=== PATIENT | male | born 1945 | race African-American/Black ===

== ENCOUNTER 2017-01-16 11:02 | Inpatient (IN) | payer MEDICARE, OTHER ==
[~2017-01-16] VITALS: Ht 190.5 cm; Wt 70.3 kg
[~2017-01-16 11:02] MED LIST: ASPIRIN E.C. 8181 MG PO; MULTI VITAMINS1 TAB PO; PROCARDIA XL90 MG PO; TOPROL XL 50MG50 MG PO; TYLENOL 500MG500 MG PO; VITAMIN D 1001000 IU PO; XARELTO15 MG PO
[2017-01-16 18:32] VITALS: BP 160/90; PULSE 88; TEMP 97.8
[2017-01-16] MEDS ORDERED: CORDARONE200 MG/TAB PO (22:46)
[2017-01-16] MEDS ORDERED: LIPITOR 40MG TA40 MG PO (22:47)
[2017-01-16] MEDS ORDERED: CARDIZEM 60MG T60 MG PO (22:50)
[2017-01-16] MEDS ORDERED: DEPAKOTE500 MG PO (22:52)
[2017-01-16] MEDS ORDERED: PEPCID 20MG TAB20 MG PO (22:52)
[2017-01-16] MEDS ORDERED: HEPARIN SOD5000 U/ML SQ (22:55)
[2017-01-16] MEDS ORDERED: XOPENEX1.25 MG/0. IH (22:56)
[2017-01-16] MEDS ORDERED: ROXICODONE 55 MG/TAB PEG (22:57)
[2017-01-16] MEDS ORDERED: COUMADIN 5MG5 MG/TAB PO (22:58)
[2017-01-16] MEDS ORDERED: TYLENOL 500MG500 MG PO (22:59)
[2017-01-17 04:08] VITALS: BP 143/87; PULSE 92; TEMP 98.5
[2017-01-17 10:08] LABS: INR 1.6 (0.8-3.0); PROTHROMBIN TIME 17.4 SECONDS (9.7-12.8)
[2017-01-17 17:12] VITALS: BP 157/94; PULSE 72; TEMP 98.1
[2017-01-18 04:06] VITALS: BP 155/88; PULSE 84; TEMP 98.9
[2017-01-18 08:13] LABS: INR 1.9 (0.8-3.0); PROTHROMBIN TIME 21.2 SECONDS (9.7-12.8)
[2017-01-18 09:10] LABS: PHOSPHOROUS 4.4 mg/dL (2.5-4.5)
[2017-01-18 15:52] VITALS: BP 156/84; PULSE 73; TEMP 98.7
[2017-01-19 05:00] VITALS: BP 149/85; PULSE 87; TEMP 97.8
[2017-01-19 06:45] LABS: ADD PATHOLOGY DIFF REVIEW NO
[2017-01-19 06:48] LABS: MEAN CELL VOLUME 94 fl (80.0-100.0); MEAN CORPUSCULAR HGB CONC 32 g/dl (33.0-37.0); MEAN PLATELET VOLUME 11.8 fl (7.4-10.4); PLATELET COUNT 413 K/mm3 (130-400); RED BLOOD COUNT 2.64 M/mm3 (4.20-5.60); REDCELL DISTRIBUTION WIDTH-CV 14.9 % (11.5-14.5)
[2017-01-19 06:53] LABS: HEMATOCRIT 24.9 % (42.0-52.0); HEMOGLOBIN 7.9 g/dl (13.5-18.0); MEAN CORPUSCULAR HEMOGLOBIN 30 pg (27.0-31.0)
[2017-01-19 07:04] LABS: ADJUSTED CALCIUM 9.2 mg/dL (8.4-10.2); ALBUMIN 2.9 gm/dL (3.5-5.0); BILIRUBIN,TOTAL 0.5 mg/dL (0.0-1.0); CALCIUM 8.3 mg/dL (8.4-10.2); MAGNESIUM 2.1 mg/dL (1.6-2.3); POTASSIUM 4.9 mmol/L (3.4-5.0); TOTAL PROTEIN 6.7 gm/dL (6.4-8.2)
[2017-01-19 07:09] LABS: CREATININE, serum 4.4 mg/dL (0.66-1.25)
[2017-01-19 07:26] LABS: INR 2.1 (0.8-3.0); PROTHROMBIN TIME 23.3 SECONDS (9.7-12.8)
[2017-01-19 08:12] LABS: BAND 2 % (0-10); EOSINOPHIL 1 % (0-4); NEUTROPHILS 78 % (42.0-75.2); TOTAL CELLS COUNTED 100
[2017-01-19 08:13] LABS: PLATELET ESTIMATE INCREASED (NORMAL)
[2017-01-19 11:49] VITALS: PULSE 75
[2017-01-19 15:59] VITALS: BP 148/91; PULSE 79; TEMP 98.1
[2017-01-20 04:47] VITALS: BP 159/80; PULSE 92; TEMP 98.2
[2017-01-20 08:16] LABS: PROTHROMBIN TIME 23.2 SECONDS (9.7-12.8)
[2017-01-20 08:43] LABS: CALCIUM 8.5 mg/dL (8.4-10.2)
[2017-01-20 09:05] LABS: CREATININE, serum 4.33 mg/dL (0.66-1.25)
[2017-01-20 13:30] VITALS: PULSE 81
[2017-01-20 16:50] VITALS: BP 142/84; PULSE 80; TEMP 99.3
[2017-01-21 05:26] VITALS: BP 144/88; PULSE 83; TEMP 99.7
[2017-01-21 07:59] LABS: PROTHROMBIN TIME 22.6 SECONDS (9.7-12.8)
[2017-01-21 18:30] VITALS: BP 162/99; PULSE 80; TEMP 98
[2017-01-22 04:41] VITALS: BP 154/85; PULSE 86; TEMP 99.8
[2017-01-22 06:35] LABS: INR 2.1 (0.8-3.0); PROTHROMBIN TIME 23.9 SECONDS (9.7-12.8)
[2017-01-22 17:59] VITALS: BP 177/100; PULSE 80; TEMP 98.6
[2017-01-22 21:50] VITALS: BP 169/93
[2017-01-23 05:18] VITALS: BP 171/93; PULSE 89; TEMP 99.3
[2017-01-23 07:17] LABS: INR 2.4 (0.8-3.0); PROTHROMBIN TIME 27.5 SECONDS (9.7-12.8)
[2017-01-23 19:34] VITALS: BP 145/85; PULSE 77; TEMP 98
[2017-01-24 05:12] VITALS: BP 152/92; PULSE 80; TEMP 99
[2017-01-24 07:50] LABS: INR 2.7 (0.8-3.0); PROTHROMBIN TIME 31.1 SECONDS (9.7-12.8)
[2017-01-24 07:59] LABS: CALCIUM 8.3 mg/dL (8.4-10.2); POTASSIUM 4.8 mmol/L (3.4-5.0)
[2017-01-24 08:22] LABS: CREATININE, serum 4.48 mg/dL (0.66-1.25)
[2017-01-24 09:22] VITALS: BP 145/87; PULSE 77; TEMP 99.1
[2017-01-24 17:18] VITALS: BP 153/82; PULSE 65; TEMP 97.3
[2017-01-25] VITALS (9 sets, daily range): BP systolic 147–167; BP diastolic 86–112; PULSE 72–79; TEMP 98.3
[2017-01-26 05:38] VITALS: BP 175/94; PULSE 70; TEMP 97.8
[2017-01-26 06:15] LABS: ALBUMIN 3.2 gm/dL (3.5-5.0); BILIRUBIN,TOTAL 0.5 mg/dL (0.0-1.0); CALCIUM 8.4 mg/dL (8.4-10.2); PHOSPHOROUS 4.9 mg/dL (2.5-4.5); POTASSIUM 4.3 mmol/L (3.4-5.0); TOTAL PROTEIN 7.3 gm/dL (6.4-8.2)
[2017-01-26 06:23] LABS: CREATININE, serum 4.29 mg/dL (0.66-1.25)
[2017-01-26 11:57] VITALS: PULSE 70
[2017-01-26 13:51] LABS: INR 2.7 (0.8-3.0); PROTHROMBIN TIME 30.9 SECONDS (9.7-12.8)
[2017-01-26 18:40] VITALS: BP 164/94; PULSE 69; TEMP 97.4
[2017-01-27 06:22] VITALS: BP 166/88; PULSE 76; TEMP 99.2
[2017-01-27 16:00] VITALS: BP 155/89; PULSE 74; TEMP 98.6
[2017-01-28 05:11] VITALS: BP 139/86; PULSE 71; TEMP 98.2
[2017-01-28 10:41] LABS: INR 3.1 (0.8-3.0); PROTHROMBIN TIME 35.8 SECONDS (9.7-12.8)
[2017-01-28 16:29] VITALS: BP 145/83; PULSE 78; TEMP 98.8
[2017-01-29 05:13] VITALS: BP 171/89; PULSE 92; TEMP 99.4
[2017-01-29 16:39] VITALS: BP 150/81; PULSE 69; TEMP 97.9
[2017-01-30 02:30] VITALS: BP 166/92; PULSE 72; TEMP 99
[2017-01-30 06:51] LABS: INR 3.9 (0.8-3.0)
[2017-01-30 06:58] LABS: PROTHROMBIN TIME 45.3 SECONDS (9.7-12.8)
[2017-01-30 16:50] VITALS: BP 135/87; PULSE 59; TEMP 97.8
[2017-01-31 06:44] VITALS: BP 142/95; PULSE 65; TEMP 99.1
[2017-01-31 07:26] LABS: INR 3.9 (0.8-3.0)
[2017-01-31 07:33] LABS: PROTHROMBIN TIME 45.5 SECONDS (9.7-12.8)
[2017-01-31 15:22] VITALS: BP 103/63; PULSE 56; TEMP 98.8
[2017-02-01 06:30] VITALS: BP 142/90; PULSE 65; TEMP 98.8
[2017-02-01 07:58] LABS: INR 2.7 (0.8-3.0); PROTHROMBIN TIME 30.7 SECONDS (9.7-12.8)
[2017-02-01 18:13] VITALS: BP 118/81; PULSE 60; TEMP 98.3
[2017-02-02 06:30] VITALS: BP 130/83; PULSE 59; TEMP 99.4
[2017-02-02 07:01] LABS: MEAN CELL VOLUME 90 fl (80.0-100.0); MEAN CORPUSCULAR HGB CONC 33 g/dl (33.0-37.0); MEAN PLATELET VOLUME 12.7 fl (7.4-10.4); PLATELET COUNT 252 K/mm3 (130-400); RED BLOOD COUNT 2.62 M/mm3 (4.20-5.60); REDCELL DISTRIBUTION WIDTH-CV 14.9 % (11.5-14.5); WHITE BLOOD COUNT 13.5 K/mm3 (4.8-10.8)
[2017-02-02 07:02] LABS: ADD PATHOLOGY DIFF REVIEW NO; HEMATOCRIT 23.5 % (42.0-52.0); HEMOGLOBIN 7.7 g/dl (13.5-18.0); MEAN CORPUSCULAR HEMOGLOBIN 29 pg (27.0-31.0)
[2017-02-02 07:03] LABS: INR 1.9 (0.8-3.0); PROTHROMBIN TIME 21.5 SECONDS (9.7-12.8)
[2017-02-02 07:29] LABS: ADJUSTED CALCIUM 9.7 mg/dL (8.4-10.2); ALBUMIN 2.9 gm/dL (3.5-5.0); BILIRUBIN,TOTAL 0.4 mg/dL (0.0-1.0); CALCIUM 8.8 mg/dL (8.4-10.2); TOTAL PROTEIN 7.1 gm/dL (6.4-8.2)
[2017-02-02 08:09] LABS: EOSINOPHIL 1 % (0-4); NEUTROPHILS 65 % (42.0-75.2); TOTAL CELLS COUNTED 100; TOXIC GRANULATION PRESENT
[2017-02-02 08:10] LABS: PLATELET ESTIMATE NORMAL (NORMAL)
[2017-02-02 08:16] LABS: MAGNESIUM 2.7 mg/dL (1.6-2.3); PHOSPHOROUS 2.9 mg/dL (2.5-4.5)
[2017-02-02 08:18] LABS: CREATININE, serum 5.12 mg/dL (0.66-1.25)
[2017-02-02 16:06] VITALS: BP 112/81; PULSE 56; TEMP 98.5
[2017-02-03 05:27] VITALS: BP 120/77; PULSE 59; TEMP 98.5
[2017-02-03 06:47] LABS: INR 1.8 (0.8-3.0); PROTHROMBIN TIME 19.8 SECONDS (9.7-12.8)
[2017-02-03 06:52] LABS: CALCIUM 8.7 mg/dL (8.4-10.2); POTASSIUM 5.1 mmol/L (3.4-5.0)
[2017-02-03 06:55] LABS: CREATININE, serum 5.41 mg/dL (0.66-1.25)
[2017-02-03 16:27] VITALS: BP 125/69; PULSE 60; TEMP 97.1
[2017-02-04 04:09] VITALS: BP 152/49; PULSE 66; TEMP 98.2
[2017-02-04 06:19] LABS: MEAN CELL VOLUME 90 fl (80.0-100.0); MEAN CORPUSCULAR HGB CONC 32 g/dl (33.0-37.0); MEAN PLATELET VOLUME 12.6 fl (7.4-10.4); PLATELET COUNT 248 K/mm3 (130-400); RED BLOOD COUNT 2.52 M/mm3 (4.20-5.60); REDCELL DISTRIBUTION WIDTH-CV 15.2 % (11.5-14.5)
[2017-02-04 06:21] LABS: PROTHROMBIN TIME 22.8 SECONDS (9.7-12.8)
[2017-02-04 06:24] LABS: HEMATOCRIT 22.7 % (42.0-52.0); HEMOGLOBIN 7.3 g/dl (13.5-18.0); MEAN CORPUSCULAR HEMOGLOBIN 29 pg (27.0-31.0)
[2017-02-04 06:25] LABS: ADD PATHOLOGY DIFF REVIEW NO
[2017-02-04 06:29] LABS: POTASSIUM 5.1 mmol/L (3.4-5.0)
[2017-02-04 06:32] LABS: CREATININE, serum 5.68 mg/dL (0.66-1.25)
[2017-02-04 11:28] LABS: ANISOCYTOSIS 2+; BAND 4 % (0-10); EOSINOPHIL 1 % (0-4); HYPOCHROMIA 1+; MICROCYTOSIS 1+; NEUTROPHILS 60 % (42.0-75.2); SCHISTOCYTES 1+; TOTAL CELLS COUNTED 100
[2017-02-04 11:29] LABS: PLATELET ESTIMATE NORMAL (NORMAL)
[2017-02-04 17:46] VITALS: BP 121/75; PULSE 61; TEMP 98.1
[2017-02-05 04:28] VITALS: BP 148/76; PULSE 64; TEMP 99
[2017-02-05 08:12] LABS: INR 2.6 (0.8-3.0); PROTHROMBIN TIME 30.1 SECONDS (9.7-12.8)
[2017-02-05] MEDS ORDERED: MEGACE ORAL40 MG/ML PO (11:54)
[2017-02-05] MEDS ORDERED: IPRATROPIUM BROM3 M1 IH (11:55)
[2017-02-05] MEDS ORDERED: RT ALBUTER2.5 MG/0.5 IH (11:55)
[2017-02-05] MEDS ORDERED: APRESOLINE50 MG PO (11:56)
[2017-02-05] MEDS ORDERED: LOPRESSOR 225 MG/TAB PO (11:56)
[2017-02-05] MEDS ORDERED: COUMADIN 22.5 MG/TAB PO (11:56)
[2017-02-05] MEDS ORDERED: DEPAKOTE 125MG125 MG PO (11:57)
[2017-02-05] MEDS ORDERED: TYLENOL 325MG325 MG PO (11:57)
[2017-02-05] MEDS ORDERED: SILVADENE CREAM1 TU TP ×2 (11:59)
[2017-02-05] MEDS ORDERED: NORCO 325 MG-51 TAB PO (12:00)
[2017-02-05] MEDS ORDERED: ROXANOL 20MG20 MG/ML SL (12:00)
[2017-02-05] MEDS ORDERED: ATIVAN 1MG T1 MG/TAB PO (12:00)
== END 2017-02-05 13:20 | DRG 56 ==
PROVIDERS: Internal Medicine
PROC: 02HV33Z Insertion of Infusion Device into Superior Vena Cava, Percutaneous Approach (ICD-10-PCS; principal; 2017-01-21)
DX: I69.351 Hemiplegia and hemiparesis following cerebral infarction affecting right dominant side (principal); J96.01 Acute respiratory failure with hypoxia; A41.9 Sepsis, unspecified organism; J69.0 Pneumonitis due to inhalation of food and vomit; E43 Unspecified severe protein-calorie malnutrition; Z66 Do not resuscitate; G93.41 Metabolic encephalopathy; Z68.1 Body mass index [BMI] 19.9 or less, adult; N17.9 Acute kidney failure, unspecified; I48.91 Unspecified atrial fibrillation; R13.10 Dysphagia, unspecified; I12.9 Hypertensive chronic kidney disease with stage 1 through stage 4 chronic kidney disease, or unspecified chronic kidney disease; E11.22 Type 2 diabetes mellitus with diabetic chronic kidney disease; N18.9 Chronic kidney disease, unspecified; E83.51 Hypocalcemia; D64.9 Anemia, unspecified
CPT/HCPCS: 99223-AI; 99232-AI; 99233-AI; 99239; C1751; J1644; J2916; J7030

== ENCOUNTER → 2017-03-03 | Outpatient (REF) ==
[~2017-03-03] MED LIST changes: +APRESOLINE50 MG PO; +ATIVAN 1MG T1 MG/TAB PO; +CARDIZEM 60MG T60 MG PO; +CORDARONE200 MG/TAB PO; +COUMADIN 22.5 MG/TAB PO; +COUMADIN 5MG5 MG/TAB PO; +DEPAKOTE 125MG125 MG PO; +DEPAKOTE500 MG PO; +HEPARIN SOD5000 U/ML SQ; +IPRATROPIUM BROM3 M1 IH; +LIPITOR 40MG TA40 MG PO; +LOPRESSOR 225 MG/TAB PO; +MEGACE ORAL40 MG/ML PO; +NORCO 325 MG-51 TAB PO; +PEPCID 20MG TAB20 MG PO; +ROXANOL 20MG20 MG/ML SL; +ROXICODONE 55 MG/TAB PEG; +RT ALBUTER2.5 MG/0.5 IH; +SILVADENE CREAM1 TU TP; +TYLENOL 325MG325 MG PO; +XOPENEX1.25 MG/0. IH
== END ==
LOC: ZAIV 06:00
DX: Z01.89 Encounter for other specified special examinations (principal)